=== PATIENT | male | born 1980 | race Caucasian/White ===

== ENCOUNTER 2017-03-03 09:23 | Emergency (ER) | payer OTHER ==
[~2017-03-03] VITALS: Ht 177.8 cm; Wt 82.9 kg
[2017-03-03 09:28] VITALS: TEMP 36.6; Ht 177.8 cm; Wt 82.9 kg
[2017-03-03] MEDS ORDERED: SODIUM CHLORIDE 0.9% 1000ML 1,000 ML IV STA (09:51)
--- NOTE | 2017-03-03 10:18 | DIAGNOSTIC IMAGING REPORT ---
CHEST ONE VIEW PORTABLE CLINICAL HISTORY: Altered mental status. Weakness. Nausea. COMPARISON STUDY: No previous studies for comparison. FINDINGS: Lung volumes are normal. There is no pneumothorax or pleural effusion. Cardiac size is normal. Mediastinal contours are normal. No evidence of pulmonary edema. IMPRESSION: No acute cardiopulmonary findings. Electronically signed by: Karl Caraballo M.D. 03/03/2017 10:16 AM Dictated Date/Time: 03/03/2017 10:16 AM
[2017-03-03 10:25] LABS: MANUAL MICROSCOPIC REQUIRED? NO; URINE APPEARANCE CLEAR (CLEAR); URINE BILIRUBIN NEG (NEG); URINE COLOR YELLOW; URINE NITRITE NEG (NEG); URINE PH 7.5 (4.5-7.5); UROBILINOGEN NEG (NEG)
[2017-03-03 10:27] LABS: BASO % 0.5 %; BASO ABS # 0.04 K/uL (0-0.2); COMPLETE YES; EOS % 1.5 %; HEMATOCRIT 48.8 % (42-52); IG% 0.3 %; LYMPH % 24.5 %; LYMPH ABS # 1.82 K/uL (1.2-3.4); MEAN CELL VOLUME 87.3 fL (80-100); MEAN CORPUSCULAR HEMOGLOBIN 30.9 pg (25-34); MEAN CORPUSCULAR HGB CONC 35.5 g/dl (32-36); NEUT % 66.2 %; PLATELET COUNT 267 K/uL (130-400); RED BLOOD COUNT 5.59 M/uL (4.7-6.1); WHITE BLOOD COUNT 7.44 K/uL (4.8-10.8)
--- NOTE | 2017-03-03 10:30 | DIAGNOSTIC IMAGING REPORT ---
CT OF THE HEAD WITHOUT CONTRAST CLINICAL HISTORY: Altered mental status. Weakness. Intermittent headaches. COMPARISON STUDY: No previous studies for comparison. CT DOSE: 788.63 mGycm TECHNIQUE: Helical axial images of the head were obtained without IV contrast. Automated exposure control was utilized for the study. FINDINGS: No acute intracranial hemorrhage, midline shift or mass effect is present. Ventricular system is normal. Basilar cisterns are patent. There are no extra-axial collections. Marshall-white differentiation is maintained. There are no findings to suggest acute dural sinus thrombosis or acute territorial infarct. There are no significant calvarial abnormalities. Visualized portions of the mastoid air cells are clear. There is mild mucosal thickening of the sinuses. IMPRESSION: No acute intracranial findings. Electronically signed by: Karl Caraballo M.D. 03/03/2017 10:29 AM Dictated Date/Time: 03/03/2017 10:26 AM
[2017-03-03 10:45] LABS: CALCIUM 9.2 mg/dl (8.5-10.1); CREATININE 1.1 mg/dl (0.60-1.40); POTASSIUM 3.8 mmol/L (3.5-5.1)
[2017-03-03 10:47] LABS: REVIEW REQ? NO; SULFASALICYLIC ACID NEG (NEG)
[2017-03-03 10:48] LABS: ZZUR CULT IF INDIC CLEAN CATCH NO
[2017-03-03 10:56] LABS: CKMB/CK RATIO 0.7 (0-3.0); THYROID STIMULATING HORMONE 1.43 uIu/ml (0.300-4.500)
--- NOTE | 2017-03-03 11:54 | EMERGENCY ROOM VISIT NOTE ---
History Report prepared by Christina: Eduardo Loera Under the Supervision of: Dr. Americo Lopez D.O. First contact with patient: 09:47 Chief Complaint: ILLNESS Stated Complaint: WEAK,NAUSEA, HEADACHE History of Present Illness The patient is a 36 year old male who presents to the Emergency Room with complaints of intermittent headaches beginning a few weeks ago. He states that he does not currently have a headache. He states that his headaches are often associated with his contact lenses, though not always. The patient is scheduled to see his PCP next week for his headaches. He describes his headaches as "mild ". He states that they feel like a sensation of "pressure". The patient notes that he has had several tick bites in the past few months and had a bullseye- like rash following the bites. He also complains of intermittent neck tightness and weakness. He states "I don't feel like myself". The patient states that he developed dizziness and nausea today as well. He denies any shortness of breath or chest pain. He notes that he has not been hydrated very well recently. The patient notes that he has had problems with gout in the past. Source of History: patient Onset: A few weeks ago Position: head Symptom Intensity: mild Quality: pressure Timing: intermittent Associated Symptoms: + nausea, + weakness, No chest pain, No SOB Note: Additional symptoms: dizziness. Review of Systems See HPI for pertinent positives & negatives. A total of 10 systems reviewed and were otherwise negative. Past Medical & Surgical Medical Problems: (1) Gout (2) Need for prophylactic vaccination against rabies (3) Need for prophylactic vaccination against rabies (4) Need for prophylactic vaccination against rabies (5) No Known Active Medical Problems Family History No pertinent family history stated. Social History Smoking Status: Never Smoker Housing Status: lives with family Occupation Status: employed Current/Historical Medications No Active Prescriptions or Reported Meds Allergies Coded Allergies: No Known Allergies (Unverified , 12/29/13) Physical Exam Vital Signs Date Time Temp Pulse Resp B/P (MAP) Pulse Ox O2 Delivery O2 Flow Rate FiO2 03/03/17 10:43 94 03/03/17 09:28 36.6 95 20 144/83 98 Room Air Physical Exam CONSTITUTIONAL/VITAL SIGNS: Reviewed / noted above. GENERAL: Non-toxic in appearance. INTEGUMENTARY: Warm, dry, and [place]. HEAD: Normocephalic. EYES: without scleral icterus or trauma. ENT/OROPHARYNX: clear and moist. LYMPHADENOPATHY/NECK: Is supple without lymphadenopathy or meningismus. RESPIRATORY: Lungs clear and equal. CARDIOVASCULAR: Regular rate and rhythm. GI/ABDOMEN: Soft and nontender. No organomegaly or pulsatile mass. No rebound or guarding. Normal bowel sounds. EXTREMITIES: Warm and well perfused. BACK: No CVA tenderness. NEUROLOGICAL: Intact without focal deficits. PSYCHIATRIC: normal affect. MUSCULOSKELETAL: Normally developed with good muscle tone. Medical Decision & Procedures ER Provider Diagnostic Interpretation: Radiology results as stated below per my review and radiologist interpretation: CT OF THE HEAD WITHOUT CONTRAST FINDINGS: No acute intracranial hemorrhage, midline shift or mass effect is present. Ventricular system is normal. Basilar cisterns are patent. There are no extra-axial collections. Marshall-white differentiation is maintained. There are no findings to suggest acute dural sinus thrombosis or acute territorial infarct. There are no significant calvarial abnormalities. Visualized portions of the mastoid air cells are clear. There is mild mucosal thickening of the sinuses. IMPRESSION: No acute intracranial findings. Electronically signed by: Karl Caraballo M.D. CHEST ONE VIEW PORTABLE FINDINGS: Lung volumes are normal. There is no pneumothorax or pleural effusion. Cardiac size is normal. Mediastinal contours are normal. No evidence of pulmonary edema. IMPRESSION: No acute cardiopulmonary findings. Electronically signed by: Karl Caraballo M.D. Laboratory Results 03/03/17 10:00 Red Blood Count 5.59, Mean Corpuscular Volume 87.3, Mean Corpuscular Hemoglobin 30.9, Mean Corpuscular Hemoglobin Concent 35.5, Mean Platelet Volume 10.0, Neutrophils (%) (Auto) 66.2, Lymphocytes (%) (Auto) 24.5, Monocytes (%) (Auto) 7.0, Eosinophils (%) (Auto) 1.5, Basophils (%) (Auto) 0.5, Neutrophils # (Auto) 4.93, Lymphocytes # (Auto) 1.82, Monocytes # (Auto) 0.52, Eosinophils # (Auto) 0.11, Basophils # (Auto) 0.04 03/03/17 10:00 Test 03/03/17 10:00 03/03/17 10:05 White Blood Count 7.44 K/uL (4.8-10.8) Red Blood Count 5.59 M/uL (4.7-6.1) Hemoglobin 17.3 g/dL (14.0-18.0) Hematocrit 48.8 % (42-52) Mean Corpuscular Volume 87.3 fL (80-100) Mean Corpuscular Hemoglobin 30.9 pg (25-34) Mean Corpuscular Hemoglobin Concent 35.5 g/dl (32-36) Platelet Count 267 K/uL (130-400) Mean Platelet Volume 10.0 fL (7.4-10.4) Neutrophils (%) (Auto) 66.2 % Lymphocytes (%) (Auto) 24.5 % Monocytes (%) (Auto) 7.0 % Eosinophils (%) (Auto) 1.5 % Basophils (%) (Auto) 0.5 % Neutrophils # (Auto) 4.93 K/uL (1.4-6.5) Lymphocytes # (Auto) 1.82 K/uL (1.2-3.4) Monocytes # (Auto) 0.52 K/uL (0.11-0.59) Eosinophils # (Auto) 0.11 K/uL (0-0.5) Basophils # (Auto) 0.04 K/uL (0-0.2) RDW Standard Deviation 41.3 fL (36.4-46.3) RDW Coefficient of Variation 12.9 % (11.5-14.5) Immature Granulocyte % (Auto) 0.3 % Immature Granulocyte # (Auto) 0.02 K/uL (0.00-0.02) Anion Gap 7.0 mmol/L (3-11) Est Creatinine Clear Calc Drug Dose 94.9 ml/min Estimated GFR () 98.9 Estimated GFR (Non- 85.3 BUN/Creatinine Ratio 12.0 (10-20) Calcium Level 9.2 mg/dl (8.5-10.1) Total Bilirubin 0.8 mg/dl (0.2-1) Direct Bilirubin 0.2 mg/dl (0-0.2) Aspartate Amino Transf (AST/SGOT) 19 U/L (15-37) Alanine Aminotransferase (ALT/SGPT) 39 U/L (12-78) Alkaline Phosphatase 73 U/L (45-117) Total Creatine Kinase 86 U/L (39-308) Creatine Kinase MB 0.6 ng/ml (0.5-3.6) Creatine Kinase MB Ratio 0.7 (0-3.0) Total Protein 7.2 gm/dl (6.4-8.2) Albumin 4.2 gm/dl (3.4-5.0) Thyroid Stimulating Hormone (TSH) 1.430 uIu/ml (0.300-4.500) Lyme Disease IgM Antibody NEG (NEG) Urine Color YELLOW Urine Appearance CLEAR (CLEAR) Urine pH 7.5 (4.5-7.5) Urine Specific [place] 1.010 (1.000-1.030) Urine Protein NEG (NEG) Urine Glucose (UA) NEG (NEG) Urine Ketones NEG (NEG) Urine Occult Blood NEG (NEG) Urine Nitrite NEG (NEG) Urine Bilirubin NEG (NEG) Urine Urobilinogen NEG (NEG) Urine Leukocyte Esterase NEG (NEG) Laboratory results as stated above per my review. Medications Administered Medications (Trade) Dose Ordered Sig/Azar Route Start Time Stop Time Status Last Admin Dose Admin Sodium Chloride 1,000 ml @ 999 mls/hr Q1H1M STAT IV 03/03/17 09:51 03/03/17 10:51 DC 03/03/17 10:15 999 MLS/HR ED Course 0947: Previous medical records were reviewed. The patient was evaluated in room B9. A complete history and physical examination was performed. 0951: Ordered Sodium Chloride 1000 ml @ 999 mls/hr IV. Medical Decision Differential includes acute coronary syndrome, myocardial infarction, CVA, TIA, anemia, infection, pneumonia, UTI, pyelonephritis, poor nutrition, dehydration, electrolyte disturbance,hypoglycemia. This is a 36-year-old male who presents to the ED with a chief complaint of some mild nausea and feeling "blah". The patient was at work today when he recognizes symptoms. He states that he felt a little dizzy as well this morning. He reports some intermittent headaches over the past few weeks which initially seemed related to his contact lenses but now seem to come even while he is not wearing them. He reports having several tick bites in the spring and having been treated with a 14 day course of doxycycline. 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 He states that he is energy levels seem to be decreased compared to prior episodes and his . The patient's vital signs are stable. His physical exam was unremarkable. He has no lymphadenopathy. Lungs are clear. Abdomen soft and nontender. Denies any rashes. CT scan of the brain and chest x-ray did not show acute disease. CBC and complete metabolic panel were normal. TSH is normal. Urine is normal. Lyme test was negative. The patient was told the results. He is felt to be stable for discharge. The patient was treated with some IV fluids. Medication Reconcilliation Current Medication List: was personally reviewed by me Blood Pressure Screening Patient's blood pressure: Elevated blood pressure Blood pressure disposition: Elevated BP felt to be situational Impression Primary Impression: Headache Additional Impression: Malaise and fatigue Scribe Attestation The scribe's documentation has been prepared under my direction and personally reviewed by me in its entirety. I confirm that the note above accurately reflects all work, treatment, procedures, and medical decision making performed by me. Departure Information Prescriptions No Active Prescriptions or Reported Meds Referrals No Doctor, Assigned (PCP) Patient Instructions My [facility] Additional Instructions Follow-up with your doctor for further care and evaluation in 1-2 days. Return to the emergency department for worsening or new symptoms or any concerns. You have been examined and treated today on an emergency basis only. This is not a substitute for, or an effort to provide, complete comprehensive medical care. It is impossible to recognize and treat all injuries or illnesses in a single emergency department visit. It is therefore important that you follow up closely with your doctor. Call as soon as possible for an appointment. Problem Qualifiers
[2017-03-03 12:07] VITALS: BP 120/66; PULSE 85; O2SAT 97
== END 2017-03-03 12:08 | disposition home or self-care (01) ==
LOC: C.EDB 09:27
DX: R51 Headache (principal); R53.81 Other malaise; R53.83 Other fatigue

== ENCOUNTER → 2017-04-06 | Outpatient (CLI) | payer OTHER ==
[2017-04-19 19:33] LABS: ANAPLASMA PHAGOCYTOPHIL IGM <1:20 (<1:20); ANAPLASMA PHAGOCYTOPHIL INTERP Past Infection; EHRLICHIA CHAFF IGG AB <1:64 (<1:64); EHRLICHIA CHAFF IGM AB <1:20 (<1:20)
== END | disposition home or self-care (01) ==
LOC: C.LAB1850 16:30
PROVIDERS: ATTEND Internal Medicine Infectious Disease
DX: A77.49 Other ehrlichiosis (principal)

== ENCOUNTER → 2017-06-23 | Outpatient (CLI) | payer OTHER ==
[~2017-06-23] MED LIST: DOXY-300 PO
--- NOTE | 2017-06-23 15:38 | DIAGNOSTIC IMAGING REPORT ---
CHEST 2 VIEWS ROUTINE CLINICAL HISTORY: A77.49 Anaplasmosisongoing chest [id number] chest pain COMPARISON STUDY: 03/03/2017 FINDINGS: The bones soft tissues and hemidiaphragms are normal. The cardiomediastinal silhouette is normal. The lungs are clear. The pulmonary vasculature is normal. IMPRESSION: Negative chest. The above report was generated using voice recognition software. It may contain grammatical, syntax or spelling errors. Electronically signed by: Saul Prasad M.D. 06/23/2017 3:37 PM Dictated Date/Time: 06/23/2017 3:36 PM
== END | disposition home or self-care (01) ==
LOC: C.RAD1850 15:20
PROVIDERS: ATTEND Internal Medicine Infectious Disease
DX: A77.49 Other ehrlichiosis (principal)

== ENCOUNTER → 2017-11-12 | Outpatient (CLI) | payer OTHER ==
[~2017-11-12] MED LIST changes: -DOXY-300 PO; +MULT-506 PO; +OPTIRAY 320 IV PRN
--- NOTE | 2017-11-12 17:16 | DIAGNOSTIC IMAGING REPORT ---
CT SCAN OF THE ABDOMEN AND PELVIS WITH IV CONTRAST CLINICAL HISTORY: Generalized abdominal pain. COMPARISON STUDY: No priors. TECHNIQUE: Following the IV administration of 118 cc of Optiray 320, CT scan of the abdomen and pelvis is performed from the lung bases to the proximal femora. Images are reviewed in the axial, sagittal, and coronal planes. IV contrast was administered without complication. A dose lowering technique was utilized adhering to the principles of ALARA. CT DOSE: 296.78 mGy.cm FINDINGS: Lung bases: The heart is normal in size and without pericardial effusion. The lung bases are clear. Liver: The contrast-enhanced liver is normal in size, contour, and attenuation. There is no intrahepatic biliary ductal dilatation. The hepatic veins and portal veins are patent. A 2.0 cm low-attenuation lesion in the posterior right hepatic lobe seen image #101 demonstrates foci of peripheral nodular enhancement. Although incompletely characterized, the appearance is typical for a hemangioma. Gallbladder: Unremarkable. Spleen: Normal in size and attenuation. Pancreas: Unremarkable. Adrenal glands: Unremarkable. Kidneys: The contrast enhanced kidneys are normal in size and without hydronephrosis. The kidneys enhance symmetrically. Abdominal vasculature: The abdominal aorta is normal in course and caliber. Bowel: There are scattered colonic diverticula without CT evidence of acute diverticulitis. No bowel obstruction is seen. The appendix is well-visualized and normal. Peritoneum: There is no intraperitoneal free air or abdominal ascites. There is a small fat-containing umbilical hernia. Lymphadenopathy: None. Pelvic viscera: The bladder, prostate, and seminal vesicles are normal as visualized. Skeletal structures: No lytic or blastic lesions are seen. IMPRESSION: There are no acute infectious or inflammatory findings in the abdomen or pelvis. Electronically signed by: Francisco Viera M.D. 11/12/2017 5:15 PM Dictated Date/Time: 11/12/2017 5:09 PM
== END | disposition home or self-care (01) ==
LOC: C.CTS 14:33
PROVIDERS: ATTEND Family Medicine
DX: R10.32 Left lower quadrant pain (principal)

== ENCOUNTER → 2017-12-07 | Day surgery (SDC) | payer OTHER ==
[2017-11-25 10:15] VITALS: BMI 24.0
[~2017-12-07] VITALS: Ht 177.8 cm; Wt 77.3 kg
[~2017-12-07] MED LIST changes: +LIDOCAINE HCL 2% 2 ML VIAL (20MG/ML) ONE; +MIDAZOLAM HCL 1 MG/ML 2ML VIAL ONE; +MISCCAP80; +OMEP20CA9 PO; -OPTIRAY 320 IV PRN; +PROPOFOL IV EMULSION 10 MG/ML 20 ML VIAL IV ONE; +SODIUM CHLORIDE 0.9% 500ML 500 ML IV ONE
[2017-12-07 11:42] VITALS: Ht 177.8 cm; Wt 77.3 kg
--- NOTE | 2017-12-07 11:46 | Endo History and Physical ---
History & Physical Date of Service: Dec 07, 2017. Chief Complaint: Abdominal bloating, Change in bowel habits Referring Physician: Teja Paul History of Present Illness 37 yo CM who presents for EGD and colonoscopy secondary to abdominal bloating and change in bowel habits. Past Surgical History Hx Cardiac Surgery: No Hx Internal Defibrillator: No Hx Pacemaker: No Hx Abdominal Surgery: No Hx of Implantable Prosthesis: No Hx Post-Op Nausea and Vomiting: Yes (? POSSIBLY) Hx Cancer Surgery: No Hx Thoracic Surgery: No Hx Orthopedic: No Hx Urinary Tract Surgery: No Family History None Social History Smoking Status: Never Smoker Hx Substance Use: No Hx Alcohol Use: Yes (RARELY) Allergies Coded Allergies: Avocado (Verified Allergy, Unknown, RASH, 12/07/17) Cashew (Verified Allergy, Unknown, RASH, 12/07/17) Kiwi (Verified Allergy, Unknown, RASH, 12/07/17) [place] (Verified Allergy, Unknown, RASH, 12/07/17) NO KNOWN DRUG ALLERGIES (Verified Allergy, Unknown, ., 12/07/17) Passion Fruit Flavor (Verified Allergy, Unknown, RASH ON FACE, 12/07/17) Current Medications Reported Home Medications Medications Dose Route/Sig Max Daily Dose Days Date Category Probiotic (Probiotic Product) 1 Cap Cap QD 12/07/17 Reported Prilosec (Omeprazole) 20 Mg Cap 20 Mg PO QAM 11/25/17 Reported Multivitamin (Multivitamins) Tab 1 Tab PO DAILY 09/01/17 Reported Vital Signs Weight (Kilograms): 77.27 Height (Feet): 5 Height (Inches): 10 Physical Exam General Appearance: WD/WN, no apparent distress Respiratory/Chest: Auscultation: breath sounds normal Cardiovascular: Heart Auscultation: RRR Abdomen: Bowel Sounds: normal Inspection & Palpation: soft, non-distended, no tenderness, guarding & rebound Assessment and Plan Assessment: 37 yo CM who presents for EGD and colonoscopy secondary to abdominal bloating and change in bowel habits. Plan: Proceed with EGD and colonoscopy.
--- NOTE | 2017-12-07 12:44 | GI REPORT ---
Procedure Date: 12/07/2017 11:55 AM Procedure: Upper GI endoscopy Indications: Abdominal bloating Medicines: Monitored Anesthesia Care Complications: No immediate complications. Estimated Blood Loss: Estimated blood loss: none. Procedure: Pre-Anesthesia Assessment: - Prior to the procedure, a History and Physical was performed, and patient medications and allergies were reviewed. The patient's tolerance of previous anesthesia was also reviewed. The risks and benefits of the procedure and the sedation options and risks were discussed with the patient. All questions were answered, and informed consent was obtained. Prior Anticoagulants: The patient has taken no previous anticoagulant or antiplatelet agents. ASA Grade Assessment: II - A patient with mild systemic disease. After reviewing the risks and benefits, the patient was deemed in satisfactory condition to undergo the procedure. After obtaining informed consent, the endoscope was passed under direct vision. Throughout the procedure, the patient's blood pressure, pulse, and oxygen saturations were monitored continuously. The scope was introduced through the mouth, and advanced to the second part of duodenum. The upper GI endoscopy was accomplished without difficulty. The patient tolerated the procedure well. Findings: The examined esophagus was normal. A small hiatal hernia was present. Biopsies were taken with a cold forceps in the gastric antrum for Helicobacter pylori testing. The examined duodenum was normal. Biopsies for histology were taken with a cold forceps for evaluation of celiac disease. Impression: - Normal esophagus. - Small hiatal hernia. - Normal examined duodenum. Biopsied. - Biopsies were taken with a cold forceps for Helicobacter pylori testing. Recommendation: - Resume previous diet. - Continue present medications. - Await pathology results. - Return to primary care physician as previously scheduled. Benjamin Guardado, DO 12/07/2017 12:43:39 PM This report has been signed electronically. Note Initiated On: 12/07/2017 11:55 AM I attest to the content of the Intraoperative Record and orders documented therein, exceptions below
--- NOTE | 2017-12-07 12:46 | GI REPORT ---
Procedure Date: 12/07/2017 12:13 PM Procedure: Colonoscopy Indications: Change in bowel habits Medicines: Monitored Anesthesia Care Complications: No immediate complications. Estimated Blood Loss: Estimated blood loss: none. Procedure: Pre-Anesthesia Assessment: - Prior to the procedure, a History and Physical was performed, and patient medications and allergies were reviewed. The patient's tolerance of previous anesthesia was also reviewed. The risks and benefits of the procedure and the sedation options and risks were discussed with the patient. All questions were answered, and informed consent was obtained. Prior Anticoagulants: The patient has taken no previous anticoagulant or antiplatelet agents. ASA Grade Assessment: II - A patient with mild systemic disease. After reviewing the risks and benefits, the patient was deemed in satisfactory condition to undergo the procedure. After I obtained informed consent, the scope was passed under direct vision. Throughout the procedure, the patient's blood pressure, pulse, and oxygen saturations were monitored continuously. The scope was introduced through the anus and advanced to the terminal ileum. The colonoscopy was performed without difficulty. The patient tolerated the procedure well. The quality of the bowel preparation was good. The terminal ileum, the appendiceal orifice and the rectum were photographed. Findings: The perianal and digital rectal examinations were normal. Non-bleeding internal hemorrhoids were found during retroflexion. The hemorrhoids were small. Several random biopsies were obtained with cold forceps for histology in the entire colon. Impression: - Non-bleeding internal hemorrhoids. - Several random biopsies were obtained in the entire colon. Recommendation: - Resume previous diet. - Continue present medications. - Repeat colonoscopy for surveillance based on pathology results. - Return to primary care physician as previously scheduled. Benjamin Guardado DO 12/07/2017 12:46:02 PM This report has been signed electronically. Note Initiated On: 12/07/2017 12:13 PM I attest to the content of the Intraoperative Record and orders documented therein, exceptions below
[2017-12-07 13:00] VITALS: BP 115/73; PULSE 64; O2SAT 100
--- NOTE | 2017-12-07 13:08 | Discharge Instructions ---
Endoscopy Patient Instructions Date / Procedure(s) Performed Dec 07, 2017. Colonoscopy, EGD Allergy Information Coded Allergies: Avocado (Verified Allergy, Unknown, RASH, 12/07/17) Cashew (Verified Allergy, Unknown, RASH, 12/07/17) Kiwi (Verified Allergy, Unknown, RASH, 12/07/17) [place] (Verified Allergy, Unknown, RASH, 12/07/17) NO KNOWN DRUG ALLERGIES (Verified Allergy, Unknown, ., 12/07/17) Passion Fruit Flavor (Verified Allergy, Unknown, RASH ON FACE, 12/07/17) Discharge Date / Findings Dec 07, 2017. EGD: Hiatal hernia, Biopsies of the gastric antrum and duodenum Colonoscopy: Internal hemorrhoids, Random colon biopsies Medication Instructions OK to resume all medications today as prescribed Reported Home Medications Medications Dose Route/Sig Max Daily Dose Days Date Category Probiotic (Probiotic Product) 1 Cap Cap QD 12/07/17 Reported Prilosec (Omeprazole) 20 Mg Cap 20 Mg PO QAM 11/25/17 Reported Multivitamin (Multivitamins) Tab 1 Tab PO DAILY 09/01/17 Reported Provider Instructions Activity Restrictions - No exercising or heavy lifting for 24 hours. - Do not drink alcohol the day of the procedure. - Do not drive a car or operate machinery until the day after the procedure. - Do not make any important decisions or sign important papers in 24 hours after the procedure. Following Day: - Return to full activity which may include returning to work/school. Diet Start your diet with liquids and light foods (jello, soup, juice, toast). Then eat your usual diet if not nauseated. Treatment For Common After Affects For mild abdominal pain, bloating, or excessive gas: - Rest - Eat lightly - Lie on right side Follow-Up Information Follow-up with DR. CHRIS as scheduled Anesthesia Information What You Should Know You have had a procedure that required some medicine to reduce anxiety and discomfort. This treatment is called moderate sedation. After receiving the treatment, you may be sleepy, but you will be able to breathe on your own. The effects of the treatment may last for several hours. Follow these instructions along with Activity/Diet recommendations noted above: * Do NOT do anything where dizziness or clumsiness would be dangerous. * Rest quietly at home today, then you can be up and about tomorrow. * Have a responsible person stay with you the rest of today. * You may have had an I.V. today. If so, you may take the dressing off later today. Recommendations Call your doctor if: * Trouble breathing * Continuous vomiting for more than 24 hours * Temperature above 101 degrees * Severe abdominal pain or bloating * Pain not relieved by pain medicine ordered * There is increased drainage or redness from any incision * A large amount of rectal bleeding greater than 2-3 tablespoons. (If you had a polyp/s removed or have hemorrhoids, a small amount of blood - from the rectum is to be expected.) * You have any unanswered questions or concerns. IN THE EVENT OF A SERIOUS EMERGENCY, GO TO THE NEAREST EMERGENCY ROOM Your discharge instructions were prepared by provider Benjamin Guardado. Patient Instructions Signature Page Lucio Cheney Patient (or Guardian) Signature/Date: I have read and understand the instructions given to me by my caregivers. Caregiver/RN/Doctor Signature/Date: The above-named patient and/or guardian has received patient instructions on this date. + Original Patient Signature Page (only) stays with chart. Please make copy for patient.
--- NOTE | 2017-12-07 13:08 | Anesthesiology Progress Note ---
Anesthesia Post Op Note Date & Time Dec 07, 2017 at 13:08 Vital Signs Pain Intensity: 0 Vital Signs Past 12 Hours Date Time Temp Pulse Resp B/P (MAP) Pulse Ox O2 Delivery O2 Flow Rate FiO2 12/07/17 12:48 77 18 110/71 (84) 99 Room Air 12/07/17 12:31 72 18 95/53 (67) 99 Room Air 12/07/17 11:47 36.8 99 20 129/78 (95) 100 Room Air Notes Mental Status: alert / awake / arousable, participated in evaluation Pt Amnestic to Procedure: Yes Nausea / Vomiting: adequately controlled Pain: adequately controlled Airway Patency, RR, SpO2: stable & adequate BP & HR: stable & adequate Hydration State: stable & adequate Anesthetic Complications: no major complications apparent
== END | disposition home or self-care (01) ==
LOC: C.GI 11:19
PROVIDERS: ATTEND Internal Medicine
DX: R19.4 Change in bowel habit (principal); K64.8 Other hemorrhoids; K44.9 Diaphragmatic hernia without obstruction or gangrene; Z91.018 Allergy to other foods; Z83.3 Family history of diabetes mellitus; Z80.43 Family history of malignant neoplasm of testis

== ENCOUNTER → 2017-12-17 | Outpatient (CLI) | payer OTHER ==
[~2017-12-17] MED LIST changes: -LIDOCAINE HCL 2% 2 ML VIAL (20MG/ML) ONE; -MIDAZOLAM HCL 1 MG/ML 2ML VIAL ONE; -PROPOFOL IV EMULSION 10 MG/ML 20 ML VIAL IV ONE; -SODIUM CHLORIDE 0.9% 500ML 500 ML IV ONE
== END | disposition home or self-care (01) ==
LOC: C.LAB 12:51
PROVIDERS: ATTEND Physician Assistant